=== PATIENT | male | born 1935 | race Caucasian/White ===

== ENCOUNTER → 2016-06-03 | Outpatient (CLI) | payer OTHER ==
[~2016-06-03] MED LIST: AMLODIPINE BESY10 MG PO; ASPIRIN81 M2 PO; BP MED; CHOLESTEROL MED; DIURETIC; HYDROCHLOROTH12.5 M1 PO; TOPROL XL50 MG PO; VIAGRA100 MG PO; ZESTRIL40 MG PO
== END ==
LOC: RAD 12:11
DX: I10 Essential (primary) hypertension (principal); M25.551 Pain in right hip

== ENCOUNTER 2018-05-17 11:09 | Inpatient (IN) | payer OTHER ==
[~2018-05-17] VITALS: Ht 177.8 cm; Wt 99.8 kg
[2018-05-17 11:11] VITALS: BP 183/90
[2018-05-17 12:01] LABS: ABSOLUTE NEUTROPHILS 5.6 thou/uL (1.4-8.2); BASOPHILS 0.8 % (0.0-2.0); EOSINOPHILS 0.2 % (0.0-3.0); HEMATOCRIT 40.8 % (42.0-52.0); HEMOGLOBIN 13.9 gm/dL (14.0-18.0); LYMPHOCYTES 11.7 % (24.0-44.0); MCV 94.1 fL (80.0-100.0); PLATELET COUNT 140 thou/uL (150-400); POLYS 83.3 % (36.0-66.0); RBC 4.33 mil/uL (4.50-6.00); RDW 13.7 % (10.5-14.5); WBC 6.7 thou/uL (4.0-11.0)
[2018-05-17 12:05] LABS: CALCIUM 8.9 mg/dL (8.5-10.1); CREATININE 1.3 mg/dL (0.7-1.3); POTASSIUM 3.6 mmol/L (3.5-5.1)
[2018-05-17 12:08] LABS: ALBUMIN 3.3 g/dL (3.4-5.0); DIRECT BILIRUBIN 0.3 mg/dL (<0.1-0.3); TOTAL BILIRUBIN 1.4 mg/dL (<0.1-1.0); TOTAL PROTEIN 7.1 g/dL (6.4-8.2)
[2018-05-17 12:17] LABS: URINE BILIRUBIN NEGATIVE (Negative); URINE BLOOD TRACE (Negative); URINE CLARITY CLEAR; URINE COLOR YELLOW; URINE GLUCOSE-RANDOM* NEGATIVE (Negative); URINE KETONES NEGATIVE (Negative); URINE LEUKOCYTES-REFLEX NEGATIVE (Negative); URINE NITRITE-REFLEX NEGATIVE (Negative); URINE PROTEIN (DIPSTICK) 2+ (Negative); URINE SPECIFIC GRAVITY 1.025 (1.005-1.035); URINE UROBILINOGEN 0.2 E.U./dl (0.2-1.0)
[2018-05-17 12:27] LABS: CASTS None Seen /LPF (None Seen); SQUAMOUS 0-3 Few /LPF (0-3)
[2018-05-17 12:28] LABS: MUCUS 0-3 Light strn/LPF (None Seen); URINE RBC 0-2 Rare /HPF (0-2); URINE WBC-REFLEX 0-5 Rare /HPF (0-5)
[2018-05-17 12:29] LABS: BACTERIA-REFLEX None Seen /HPF (None Seen); CRYSTALS None Seen /LPF (None Seen)
[2018-05-17] MEDS ORDERED: ATORVASTATIN CA40 MG PO (12:37)
[2018-05-17] MEDS ORDERED: PLAVIX 75 MG TA75 M1 PO (12:37)
[2018-05-17] MEDS ORDERED: PROSCAR 5MG TABL5 MG PO (12:38)
[2018-05-17] MEDS ORDERED: FLOMAX0.4 MG PO (12:38)
--- NOTE | 2018-05-17 16:31 | NUR ---
CT AWARE OF IV ACCESS IN RAC
[2018-05-17 16:47] VITALS: BP 177/87
[2018-05-17 18:25] VITALS: BP 195/72
[2018-05-17 18:50] VITALS: BP 171/84
[2018-05-17 23:54] VITALS: BP 123/68
[2018-05-18 04:10] VITALS: BP 127/58
--- NOTE | 2018-05-18 05:38 | NUR ---
Pt. rested quietly at intervals during the night when checked on during frequent rounds. He offers no c/o pain or nausea. Used the urinal when offered to him. Bed alarm is on.
[2018-05-18] MEDS ORDERED: COREG6.25 MG PO (07:11)
[2018-05-18 07:50] VITALS: BP 132/62
--- NOTE | 2018-05-18 13:16 | NUR ---
PT ADMITTED RELATED TO VOMITING, NEAR SYNCOPE, UNABLE TO AMBULATE, HYPERTENSION. CM REVIEWED CHART AND SPOKE WITH CARE TEAM. CM MET WITH PT AND SPOUSE AT BEDSIDE THIS DAY. PT IS A&0 X4. CM ROLE INTRODUCED. PT INDICATED HE LIVES IN AN APAETMENT WITH HIS SPOUSE 2 STEPS TO ENTER NO STEPS INSIDE. PT INDICATED HE USED A CANE TO ASSIST WITH MOBILITY. PT INDICATED HE HAD USED [facility] IN THE PAST AND HE WANTED TO USE THEM AGIAN UPON DC IF NEEDED. CM TO FALLOW REGARDING DC PLANNING.
--- NOTE | 2018-05-18 14:40 | NUR ---
DISCHARGE PLANNING. ANTICIPATED DISCHARGE PLANNED FOR TOMORROW. HOME HEALTH SERVICES RECOMMENDED AT DISCHARGE. PATIENT HAS USED [facility] IN THE PAST AND REQUESTS REFERRAL FAXED TO [facility]. REFERRAL FAXED TO [facility] ADMISSIONS LIAISON. CALL PLACED TO [facility] TO NOTIFY OF OF REFERRAL AND PATIENTS ANTICIPATED DISCHARGE DATE. [facility] TO REVIEW REFERRAL AND NOTIFY CM. UNIT SW AWARE. FOLLOWING TO ASSIST WITH DC NEEDS.
--- NOTE | 2018-05-18 15:00 | NUR ---
CARE TEAM INDICATED THAT PT WILL LIKELY BE MEDICALLY STABLE TO DISCHARGE HOME WITH HOME HEALTH TOMORROW Monday05/19/18. PHYSICIAN INDICATED THAT PT WOULD BENEFIT FROM HH PT, OT, AND NURSING HH SERVICES UPON DC. PT AND SPOUSE EXPRESSED DESIRE TO USE [facility]. REFERRAL WAS SENT. ONCE ORDERS ARE ENTERED PLEASE FAX THEM TO . PLEASE CALL TO NOTIFY THEM OF DC. PT HAS ALL RECOMMENDED DME. NO OTHER CM INTERVENTION ANTICIPATED. CM ABLE TO ASSIST SHOULD NEEDS ARISE.
[2018-05-18 15:15] VITALS: BP 131/68
--- NOTE | 2018-05-18 15:15 | EKG ---
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1935 Requested By: Juliet Dugan Order Number: [id number] MD: Dorian Delatorre Measurements Intervals [place] Rate: 45 P: -4 MN: 228 QRS: -16 QRSD: 104 T: 212 QT: 514 QTc: 445 Interpretive Statements Sinus bradycardia Prolonged [place] interval LVH with secondary repolarization abnormality Compared to ECG 02/12/2014 14:30:35 Ectopics not present Electronically Signed On 05-18-2018 15:15:25 CDT by Dorian Delatorre [email or web address] ��������������������������������������������� <ELECTRONICALLY SIGNED> ���������������������������������������� By: Dorian Delatorre MD ��������������������������������������������� 05/18/18 1515 1318 17 Dorian Delaotrre MD /EPI
--- NOTE | 2018-05-18 17:40 | NUR ---
PT A&OX4, VSS, NO PAIN. ADVANCED TO REGULAR DIET AND TOLERATING WITH NO C/O N/V/D. PT UNSTEADY GAIT AND WALKED BETTER WITH WALKER. WILL CONTINUE TO MONITOR.
[2018-05-18 20:26] VITALS: BP 147/74
[2018-05-19 04:18] VITALS: BP 141/55
--- NOTE | 2018-05-19 05:27 | NUR ---
Pt. rested quietly during the night when checked on during frequent rounds. He offers no complaints of pain or discomfort. Bed alarm is on.
[2018-05-19 08:13] VITALS: BP 174/80
[2018-05-19 16:47] VITALS: BP 149/76
--- NOTE | 2018-05-19 17:19 | NUR ---
PT A&OX4, VSS, NO PAIN. PT HAS USED WALKER TO AMBULATE WITH STAND BY ASSIST. PT ABLE TO MOVE FROM BED TO RECLINER AND STAND FROM RECLINER WITH MINIMUM ASSIST. PLAN IS TO DISCHARGE HOME WITH HOME HEALTH, PT, AND OT SOON PT REGAINS STRENGTH. WILL CONTINUE TO MONITOR.
[2018-05-19 19:25] VITALS: BP 180/105
[2018-05-19 20:00] VITALS: BP 167/98
[2018-05-20] VITALS: BP 185/107
[2018-05-20 00:02] VITALS: BP 181/109
[2018-05-20 04:00] VITALS: BP 164/86
--- NOTE | 2018-05-20 04:31 | NUR ---
Pt. rested quietly during the night when checked on during frequent rounds. He offers no c/o pain or discomfort. Bed alarm is on.
[2018-05-20 07:35] VITALS: BP 160/108
--- NOTE | 2018-05-20 11:46 | NUR ---
ASSUMED CARE AT 0700, SHIFT ASSESSMENT DONE, MEDS GIVEN, BP ELEVATED THIS AM, SCHEDULED MED GIVEN. DR Dwayne PARIS SAW THE PATIENT TODAY, INDICATED PATIENT CAN BE OFF FALL PRECAUTIONS, SO CHAIR AND BED ALARM TURNED OFF. PATIENT WILL BE EVALAUTED AGAIN AT 04 PM AND IF ABLE TO GET UP AND MOVE AROUND WELL, WILL BE DISCHARGED THIS EVENING. WILL CONTINUE TO ASSESS AND ASSIST WITH ADLs NEEDED.
[2018-05-20 13:52] VITALS: BP 147/92
--- NOTE | 2018-05-20 16:36 | NUR ---
DR Jose Manuel PARIS WAS PAGED AT [phone] REGARDING DISCHARGE ORDERS. HAVE NOT RECEIVED A CALL BACK YET.
--- NOTE | 2018-05-20 18:46 | NUR ---
PATIENT WANTED TO STAY FOR TONIGHT, DR PARIS DID NOT CALL BACK. WILL CONTINUE TO ASSESS AND ASSIST WITH ADLs NEEDED.
[2018-05-20 20:04] VITALS: BP 167/94
[2018-05-21 03:54] VITALS: BP 155/94
--- NOTE | 2018-05-21 04:43 | NUR ---
PT SLEPT MOST OF THE SHIFT. NO CURRENT COMPLAINTS. PT DID NOT EXPERIENCE ANY NEAR SYNCOPE EVENT THIS SHIFT. PATIENT EXPECTED TO GO HOME IN THE AM WITH HOME HEALTH. PATIENT IS PROGRESSING TOWARDS DISCHARGE GOALS.
[2018-05-21 08:00] VITALS: BP 163/103
--- NOTE | 2018-05-21 10:16 | H ---
[facility] [place] [address] HISTORY AND PHYSICAL Name: AMERICA GRANT Room #: 458-P ADM IN M.R.#: [id number] Admission: 05/17/18 ������������������ Attend Phys: Missy Menard MD Discharge: ������������������ Date of : 33 Report #: [id number] THIS REPORT FOR: //name// CC: Missy Menard DATE OF SERVICE: 05/17/2018 CHIEF COMPLAINT: Nausea, diarrhea and weakness. HISTORY OF PRESENT ILLNESS: The patient is an 82-year-old gentleman who came in to the Emergency Room initially with GI symptoms. He reported a large bowel movement and had some vomiting and somewhat of loose stools at home. He did not have any fever, chills or abdominal pain. However, he was very weak getting out of the bathroom and had dry heaving with shortness of breath for about an hour. He felt like his blood pressure was elevated and he came to the Emergency Room. Initially, he was evaluated for GI symptoms, which workup was unremarkable. Plans were to let him go home; however, when they tried to get him up from the stretcher, he was very weak and could not manage to go home. CT of the head was obtained with vascular component, but did not show any stroke or new issue, with a previously coiled aneurysm. PAST MEDICAL HISTORY: Hypertension, dyslipidemia and cerebral aneurysm, status post coiling in the distant past. PAST SURGICAL HISTORY: None. FAMILY HISTORY: Noncontributory. SOCIAL HISTORY: He is and lives with his . No chronic alcohol or tobacco use. ALLERGIES: None. MEDICATIONS: Aspirin, hydrochlorothiazide, Coreg, Lipitor, Plavix, Proscar and Flomax. REVIEW OF SYSTEMS: He denies headache, chest pain, shortness of breath, abdominal pain, nausea, vomiting, diarrhea, constipation, dysuria or syncope. PHYSICAL EXAMINATION: VITAL SIGNS: Temperature 36.6, pulse 44, respirations 18, blood pressure 132/62 and O2 sat 94% on room air. GENERAL: He is awake and alert, in no distress. LUNGS: Clear. HEART: Regular. ABDOMEN: Soft. Normoactive bowel sounds. No rebound or guarding. [facility] [address] [place] [address] HISTORY AND PHYSICAL Name: AMERICA GRANT Room #: 458-P [facility] IN .R.#: [id number] Admission: 05/17/18 ������������������ Attend Phys: Missy Menard MD Discharge: ������������������ Date of : 33 Report #: [id number] EXTREMITIES: No edema. NEUROLOGIC: His cranial nerves are intact. Speech is fluent. Motor strength intact. LABORATORY DATA: Lab and CT data reviewed. ASSESSMENT: 1. Nausea, vomiting and diarrhea. 2. Hypertension. 3. Bradycardia. PLAN: GI symptoms seem to be self-limited at this point. He is bradycardiac and I am going to discontinue the Coreg and just place him on amlodipine. Therapy to work with him and if no other new findings, then early discharge home in the next day. ��������������������������������������������� <ELECTRONICALLY SIGNED> ���������������������������������������� By: Efrain Lake MD ��������������������������������������������� 05/21/18 1016 1124 1148 Efrain Lake MD /nt
[2018-05-21] MEDS ORDERED: AMLODIPINE BESYL5 M1 PO (12:30)
[2018-05-21] MEDS ORDERED: NORVASC10 MG PO (12:32)
[2018-05-21 12:34] VITALS: BP 163/103
[2018-05-21 12:58] VITALS: BP 163/103
--- NOTE | 2018-05-21 14:50 | NUR ---
PT ALERT AND ORIENTED TIMES FOUR. BP ELEVATED THIS MORNING BEFORE SCHEDULED BP MEDICATIONS GIVEN. OTHER VSS, 97%RA, SR ON TELE. PT DENEIS PAIN/SOA. PT TOLERATES MEDS AND MEALS. PT EXCITED FOR DISCHARGE HOME TODAY. PT UP TO CHAIR FOR MOST OF THE SHIFT. PT PROGRESSING TOWRADS POC GOALS.
--- NOTE | 2018-05-21 16:31 | NUR ---
DISCHARGE NOTE: SW reviewed chart and spoke with nursing. Pt is medically stable for discharge home today. No orders for HH written. Pt's states that they do not feel that they need HH at this time, but if they change their mind, they will contact pt's PCP to arrange. SW notified Miguel at [facility]. No additional SW needs identified at this time, but is available to assist should needs arise.
--- NOTE | 2018-05-22 09:32 | HC ---
[facility] [address] CONSULTATION Name: AMERICA GRANT Rosie Room #: 458-P [facility] IN M.R.#: [id number] Admission: 05/17/18 ������������������ Attend Phys: Missy Menard MD Discharge: 05/21/18 ������������������ Date of : 33 Report #: [id number] THIS REPORT FOR: //name// CC: Missy Menard DATE OF SERVICE: 05/21/2018 FINAL DIAGNOSES: 1. Gastroenteritis. 2. Hypertension. 3. Debility. HOSPITAL COURSE: The patient was admitted with general weakness and some GI issues. Gastroenteritis was diagnosed, and he was treated symptomatically. There was also concern of a possible vascular event. A CT of the head with angiogram was obtained, but there was no evidence of bleeding or active aneurysm. He previously had aneurysm clipped several years ago and therefore could not undergo an MRI. There were no signs of new stroke based on CT. He was noted with bradycardia, and his Coreg was stopped. He was switched to amlodipine 10 mg a day. With physical therapy, his strength improved. PHYSICAL EXAMINATION: On the day of discharge: GENERAL: He was awake and alert. VITAL SIGNS: Stable vital signs, although blood pressure elevated. LUNGS: Clear. HEART: Regular. ABDOMEN: Soft, normoactive bowel sounds. EXTREMITIES: No edema. PLAN: To discharge home. Increase Norvasc to 10 mg a day. DISPOSITION: As mentioned, he will return home with diet and activity as tolerated, resume all home medications except Coreg and switched to Norvasc 10 mg a day. Follow up with Dr. Menard in 10 days. ��������������������������������������������� <ELECTRONICALLY SIGNED> ���������������������������������������� By: Efrain [place] MD ��������������������������������������������� 05/22/18 0932 1307 0250 Efrain Lake MD /nt
== END 2018-05-21 14:57 | disposition home or self-care (01) | DRG 392 ==
LOC: ER 11:09 → EROBS 15:39 → 4W 15:39
PROVIDERS: Emergency Medicine; ADMIT Internal Medicine
DX: K52.9 Noninfective gastroenteritis and colitis, unspecified (principal); R00.1 Bradycardia, unspecified; R55 Syncope and collapse; I10 Essential (primary) hypertension; E78.5 Hyperlipidemia, unspecified; Z79.82 Long term (current) use of aspirin; Z79.899 Other long term (current) drug therapy
CPT/HCPCS: 10045

== ENCOUNTER 2020-11-22 03:47 | Inpatient (IN) | payer OTHER ==
[2020-11-22] VITALS (17 sets, daily range): BP systolic 98–192; BP diastolic 54–124
[~2020-11-22] VITALS: Ht 177.8 cm; Wt 97.4 kg
--- NOTE | ~2020-11-22 | HC ---
[facility] [address] [address] CONSULTATION Name: AMERICA GRANT Room #: 245-P [facility] IN .R.#: [id number] Admission: 11/22/20 Attend Phys: Ximena Gupta MD Discharge: Date of : 33 Report #: [id number] THIS REPORT FOR: cc: Missy Menard MD, Stany A. MD [place], Roxane S. DO ~ DATE OF SERVICE: 11/22/2020 NEUROLOGY CONSULT HISTORY OF PRESENT ILLNESS: The patient is an 85-year-old gentleman who was brought to the hospital after he has fallen. His was unable to help him up, so EMS was called. Apparently, the patient has a history of stroke 7 years ago. The patient stopped all medications 6 months ago. Apparently, he saw his family physician a month or so ago and the family physician explained to him that he increases his risk for stroke or heart attack by discontinuing his medications. Apparently, the patient was tired of taking medication. With the stroke 7 years ago, the patient had sagging of his face and a left facial droop. This is his baseline now. Apparently, the patient also has a history of atrial fibrillation and when he came to the Emergency Room, he was found to be in atrial fibrillation. The patient's told EMS that aside from the baseline facial droop, he appeared to be having more difficulty with speech and it seemed to be more slurred. When he initially came to the ER, he was answering medications and was alert and oriented, although his speech was slurred. When I came in the room, the patient appeared short of breath and his oxygen saturation was 83%. The patient is now in the process of being moved to the intensive care unit. The patient is a no code, but his would like to continue with care. PAST MEDICAL HISTORY: Hypertension, hyperlipidemia, atrial fibrillation. PAST SURGICAL HISTORY: Unremarkable. MEDICATIONS AT HOME: Aspirin 81 mg daily, Lipitor 40 mg daily, Plavix 75 mg daily, finasteride 5 mg daily, tamsulosin 0.4 mg daily. ALLERGIES: None. VITAL SIGNS: Temperature 36.4, pulse rate 66, respiratory rate 18, blood pressure 188/100. Bedside pulse oximetry 94% on 2 liters. LABORATORY DATA: Hematology: White blood cell count 6.4, hemoglobin 12.3, hematocrit 37.4, MCV 97.9, platelet count 134,000, 88% segmented neutrophils. [address] [address] CONSULTATION Name: AMERICA GRANT Room #: 245-P [facility] IN ..#: [id number] Admission: 11/22/20 Attend Phys: Ximena Gupta MD Discharge: Date of : 33 Report #: [id number] Coagulation: INR 1. Urinalysis: 2+ protein, 3+ blood. Blood gas: pH 7.316, pCO2 39.7, pO2 60.3, oxygen saturation 87.8%. Chemistry: Sodium 143, potassium 4.5, chloride 110, carbon dioxide 27, BUN 26, creatinine 1.9, GFR 34, glucose 149, calcium 8.5. Total bilirubin 0.5, AST 21, ALT 17, alkaline phosphatase 77. Troponin 94. BNP 4738. Total protein 6.4, albumin 3. TSH 1.882. Serology: COVID negative. 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 No residual aneurysm seen. CT head demonstrates no acute intracranial findings, age-related findings include symmetric cerebral and cerebellar volume loss, atherosclerosis and chronic central white matter microvascular ischemia and streak artifact in the distal right ICA from prior aneurysm coiling. NEUROLOGIC EXAMINATION: The patient is acutely ill and short of breath. On inspection of the face, the left palpebral fissure is smaller than the right and the patient has a left facial droop. He was able to speak, but his speech was slurred and very difficult to understand. He was able to move his arms and legs equally. There was no significant difference. Reflexes are trace. Plantar responses were flexor bilaterally. Because the patient was acutely ill, [id number] was not performed. IMPRESSION: During this dictation, there is a question of DVT in the right lower extremity. However, we are waiting for the final radiology report. If the patient does have a DVT, the hospitalist plans on beginning anticoagulation with heparin. The patient has an increase in slurred speech and MRI of the head and MRI of the cervical spine have been ordered. The MRI of the cervical spine was ordered because of the patient's history of falls. An echocardiogram has also been ordered. Carotid ultrasound is not being ordered because the CT angiogram was done. To complete the TIA or stroke workup depending on the results of the MRI, a lipid profile is also pending. Further recommendations will be made once the patient is more stable medically and the results of the MRIs are available. I also spoke with Dr. Alvarez and I feel that it would be in the patient's best interest if he were transferred from the floor to the ICU, which is now in process. [address] [address] CONSULTATION Name: AMERICA GRANT Room #: 245-P ADM IN M.R.#: [id number] Admission: 11/22/20 Attend Phys: Ximena Gupta MD Discharge: Date of : 33 Report #: [id number] As of Monday morning, Teleneurology will be following the patient. By: 1325 19 Nia Murdock DO /jessika
--- NOTE | ~2020-11-22 | EMS ---
[address] [address] EMS Patient Care Report Name: AMERICA GRANT Room #: 170-8 ADM IN M.R.#: [id number] Admission: 11/22/20 Attend Phys: Ximena Gupta MD Discharge: Date of : 31 Report #: [id number] THIS REPORT FOR: //name// Report Transmitted: 11/22/2020 05:47 EMS Care Summary [facility] MED-ACT Incident [id number] @ 11/22/2020 03:07 Incident Location [address] [place] [address] Patient AMERICA GRANT Male, 85 Years 1935 Patient Address [address] [place] [address] Patient History Dementia,Stroke/CVA, Patient Allergies No known allergies, Patient Medications None Reported, Chief Complaint he's really swollen Disposition Transported No Lights/[place] Dispatch Reason Assist Invalid Transported To [facility] Narrative Dispatched to a residence for a male pt reported to have peripheral edema and gurgling sounds while speaking. EMS arrives to find [facility] crew on scene, [address] [address] EMS Patient Care Report Name: AMERICA GRANT Room #: 170-8 ADM IN M.R.#: [id number] Admission: 11/22/20 Attend Phys: Ximena Gupta MD Discharge: Date of : 31 Report #: [id number] reporting that they had been called to the residence for a lift assist after the man slid to the floor and was unable to get up. They report that upon lifting him from the floor next to the bed to a chair, they noticed a significant pedal edema, a left sided facial droop, and a gurgling noise when he speaks. 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 She says that his voice is always "gravelly" but not usually this bad. She also reports that approximately 6 months ago, after speaking with his physician, the pt ceased all prescription medications. She reports her understanding is that they were no longer necessary, though she is unable to say what they were or why he had been prescribed them before. She does report that along with the prior CVA, pt has a history of dementia. She says that he has difficulty ambulating through the home, and leans forward, holding onto the selby to get around. She also says that he wanders the house at all hours of the day and night. Pt denies any pain or injury, though his reports that he is unable to feel pain since his CVA. Pt also denies any dyspnea or other complaint for himself. Pt agrees to transport. His requests that he is taken to [facility] ER. Pt is lifted from a chair to the cot before being secured and moved to the ambulance for a no lights or sirens transport to [facility]. O2 administered via NC while en route. Pt lifted from the cot to the ER bed in room #8. Care transferred to waiting staff readiness officer. Initial Vitals @03:30P: 126,Pain: 0/10,SpO2: 92,OR Suspected: false @03:36P: 117,SpO2: 94, @03:40P: 106,BP: 135/84,SpO2: 93, @PTAP: 133,BP: 119/86, @03:21P: 81,R: 18,BP: 119/86,GCS: 14,SpO2: 92,Revised Trauma: 12, @PTAP: 120,R: 18,BP: 148/76,Pain: 0/10,GCS: 14,Temp: 98.2F,Glucose: 164,SpO2: 95,Revised Trauma: 12, Impression Pitting Edema Procedures @03:40Surgical Mask on PatientResponse: Unchanged@03:25Oxygen FlowRate: 4 Device: Nasal Cannula (NC) Response: UnchangedSucceeded@03:3012-Lead ECGResponse: UnchangedSucceeded@03:26Saline Lock 10cc (20 ga) Site: Antecubital-RightResponse: UnchangedSucceeded Timeline COMMERCIAL INTERN,BP: 119/86 M,PULSE: 133,RR: R,SPO2: Ox,ETCO2: ,BG: ,PAIN: ,GCS: , COMMERCIAL INTERN,BP: 148/76 M,PULSE: 120,RR: 18 R,SPO2: 95 Ox,ETCO2: ,B,PAIN: 0,GCS: [address] [address] EMS Patient Care Report Name: AMERICA GRANT Rosie Room #: 170-8 ADM IN M.R.#: [id number] Admission: 11/22/20 Attend Phys: Ximena Gupat MD Discharge: Date of : 31 Report #: [id number] 14, 02:48,Call Received 02:48,Psap Call 03:07,Dispatched 03:09,En Route 03:12,On Scene 03:14,At Patient 03:21,BP: 119/86 M,PULSE: 81,RR: 18 R,SPO2: 92 Ox,ETCO2: ,BG: ,PAIN: ,GCS: 14, 03:25,Oxygen FlowRate: 4 Device: Nasal Cannula (NC) Response: UnchangedSucceeded, 03:26,Saline Lock 10cc 20 ga Site: Antecubital-Right,Response: UnchangedSucceeded, 03:30,12-Lead ECG,Response: UnchangedSucceeded, 03:30,BP: / M,PULSE: 126,RR: R,SPO2: 92 Ox,ETCO2: ,BG: ,PAIN: 0,GCS: , 03:34,Depart Scene 03:36,BP: / M,PULSE: 117,RR: R,SPO2: 94 Ox,ETCO2: ,BG: ,PAIN: ,GCS: , 03:40,Surgical Mask on Patient,Response: Unchanged 03:40,BP: 135/84 M,PULSE: 106,RR: R,SPO2: 93 Ox,ETCO2: ,BG: ,PAIN: ,GCS: , 03:43,At Destination 04:03,Call Closed Disclaimer v1.1 Copyright 2020 [employer] This EMS Care Summary contains data elements from the applicable legal record (which may be displayed differently). It is designed to provide pertinent information for the following purposes: continuity of care, clinical quality, and state data reporting. The complete legal record is available to ED staff and administrators of the receiving hospital in [employer]'s Patient Tracker. All data is provided "as is."
[~2020-11-22 03:47] MED LIST changes: +AMLODIPINE BESYL5 M1 PO; +ATORVASTATIN CA40 MG PO; +COREG6.25 MG PO; +FLOMAX0.4 MG PO; +NORVASC10 MG PO; +PLAVIX 75 MG TA75 M1 PO; +PROSCAR 5MG TABL5 MG PO
[2020-11-22 04:23] LABS: ABSOLUTE NEUTROPHILS 5.5 thou/uL (1.4-8.2); BASOPHILS 0.7 % (0.0-2.0); HEMATOCRIT 37.4 % (42.0-52.0); HEMOGLOBIN 12.3 gm/dL (14.0-18.0); MCH 32.3 pg (26.0-34.0); MCV 97.9 fL (80.0-100.0); MONOCYTES 6.3 % (1.0-8.0); PLATELET COUNT 134 thou/uL (150-400); RBC 3.82 mil/uL (4.50-6.00); RDW 13.6 % (10.5-14.5); WBC 6.4 thou/uL (4.0-11.0)
[2020-11-22 04:25] LABS: CALCIUM 8.5 mg/dL (8.5-10.1); CREATININE 1.9 mg/dL (0.7-1.3); POTASSIUM 4.5 mmol/L (3.5-5.1)
[2020-11-22 04:28] LABS: APTT 22.8 Seconds (24.5-32.8); INR 1.03; PROTIME 11.2 Seconds (10.5-12.1)
[2020-11-22 04:33] LABS: URINE BILIRUBIN NEGATIVE (Negative); URINE BLOOD 3+ (Negative); URINE CLARITY CLEAR; URINE COLOR YELLOW; URINE GLUCOSE-RANDOM* NEGATIVE (Negative); URINE KETONES NEGATIVE (Negative); URINE LEUKOCYTES-REFLEX NEGATIVE (Negative); URINE NITRITE-REFLEX NEGATIVE (Negative); URINE PROTEIN (DIPSTICK) 2+ (Negative); URINE SPECIFIC GRAVITY >= 1.030 (1.005-1.035); URINE UROBILINOGEN 0.2 E.U./dl (0.2-1.0)
[2020-11-22 04:35] LABS: TOTAL BILIRUBIN 0.5 mg/dL (0.2-1.0); TOTAL PROTEIN 6.4 g/dL (6.4-8.2)
[2020-11-22 04:48] LABS: BACTERIA-REFLEX 1-9 Few /HPF (None Seen); CASTS None Seen /LPF (None Seen); CRYSTALS None Seen /LPF (None Seen); MUCUS 0-3 Light strn/LPF (None Seen); SQUAMOUS None Seen /LPF (0-3); URINE RBC 3-10 Few /HPF (NONE SEEN); URINE WBC-REFLEX 0-5 Rare /HPF (0-5)
--- NOTE | 2020-11-22 13:43 | EKG ---
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1935 Requested By: Sandor Patel Order Number: [id number] MD: Landry Melendez Measurements Intervals [place] Rate: 79 P: -3 [place]: 233 QRS: -23 QRSD: 148 T: 140 QT: 411 QTc: 472 Interpretive Statements Sinus rhythm Atrial premature complexes in couplets Prolonged [place] interval Left bundle branch block Compared to ECG 05/17/2018 13:18:09 Atrial premature complex(es) now present Left bundle-branch block now present Sinus bradycardia no longer present Electronically Signed On 11-22-2020 13:43:19 CDT by Landry Melendez [email or web address] <ELECTRONICALLY SIGNED> By: Landry Melendez MD, FAC 11/22/20 1343 0404 0404 Landry Melendez MD, [facility] /EPI
--- NOTE | 2020-11-22 13:46 | EKG ---
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 11/22/20 1345 9 9 Landry Melendez MD, FACC /EPI
[2020-11-22 14:07] LABS: BE(vivo) -5.9 mmol/L (-2 to +3); HCO3 19.8 mmol/L (22.0-26.0); PCO2 39.7 mmHg (35.0-45.0); PO2 60.3 mmHg (80.0-100.0); pH 7.316 (7.360-7.450); sO2 89.2 % (92.0-98.0)
[2020-11-22 14:26] LABS: CALCIUM 8.8 mg/dL (8.5-10.1); CREATININE 1.9 mg/dL (0.7-1.3); POTASSIUM 4.3 mmol/L (3.5-5.1)
[2020-11-22 14:35] LABS: MAGNESIUM 2.3 mg/dL (1.8-2.4); PHOSPHORUS 4.6 mg/dL (2.6-4.7)
--- NOTE | 2020-11-22 17:12 | NUR ---
NOTIFIED TO PLACE A PICC FOR A PATIENT IN RESPIRATORY DISTRESS TRANSFERING TO THE ICU, THE PATIENT WAS RESTLESS AND UNABLE TO LAY STILL. A #5F TRIPLE LUMEN PICC WAS PLACED IN THE RIGHT BASILIC. THE PATIENT WAS PULLING AT STERILE DRAPE AND NONCOMPLIANT AND UNABLE TO REDIRECT THROUHOUT THE WHOLE PROCEDURE. THE LINE WAS TRIMMED TO 50CM. THE PATIENT PULLED THE SHERLOCK AND LEADS OFF DURING PLACEMENT AND WAS DIFFICULT TO MAINTAIN STERILE FIELD. A STAT CHEST XRAY WAS NOTED AND THE LINE WAS WITHDREW 4CM REQUESTED. THE 2ND CHEST XRAY SHOWS LINE IN GOOD POSITION FOR USE.
--- NOTE | 2020-11-22 17:26 | NUR ---
PT ADMITTED FROM ER TO 3W ABOUT 1100AM , PT WAS A&OX2 ( PERSON AND PLACE), PT CAN FOLLOW SOME COMMANDS, BUT PT 'S SPEACH IS SLURRED, RN HAS CALLED HOSPITAL DR TO REPORT PTSTARTS MORE CONFUSED , A-FIB ANDRESPIRATORY DISTRESS, RN RECEIVED ORDER, PT STARTS BIPAP WITH O2 70%, PT WAS TRANSFED TO ICU AT 1600PM, PT'S HAS NOTIFIED PT TO ICU.
--- NOTE | 2020-11-22 19:27 | NUR ---
report received from Radha Ku RN at 1715, care assumed. resting quietly on bipap with resp even, unlabored. scheduled meds given for elevated bp. cardizem 5mg/hr started at 1830 for short runs/several beats of afib rvr and elevated sbp.
[2020-11-23] VITALS (36 sets, daily range): BP systolic 48–93; BP diastolic 26–55
[2020-11-23 01:10] LABS: ALBUMIN 2.7 g/dL (3.4-5.0); CHOLESTEROL 133 mg/dL (<200); DIRECT BILIRUBIN 0.2 mg/dL (<0.1-0.2); HDL CHOLESTEROL 55 mg/dL (>40); LDL CHOLESTEROL 69 mg/dL (<100); MAGNESIUM 2.3 mg/dL (1.8-2.4); PHOSPHORUS 7.4 mg/dL (2.5-4.9); SGOT 26 U/L (15-37); SGPT 15 U/L (30-65); TC:HDL 2.4 Ratio (Not establshd); TOTAL BILIRUBIN 0.6 mg/dL (0.2-1.0); TOTAL PROTEIN 6.3 g/dL (6.4-8.2); TRIGLYCERIDE 46 mg/dL (<150); VLDL 9 mg/dL (<40)
[2020-11-23 01:20] LABS: SERUM ASSESSMENT Clear
[2020-11-23 01:42] LABS: HEMATOCRIT 40.9 % (42.0-52.0); HEMOGLOBIN 13.2 gm/dL (14.0-18.0); MCH 32.1 pg (26.0-34.0); MCHC 32.3 g/dL (28.0-37.0); MCV 99.2 fL (80.0-100.0); RBC 4.13 mil/uL (4.50-6.00); RDW 14.4 % (10.5-14.5); WBC 13.6 thou/uL (4.0-11.0)
[2020-11-23 03:05] LABS: GLYCOHEMOGLOBIN (HGB A1C) 6.3 % (4.8-5.6)
--- NOTE | 2020-11-23 06:00 | NUR ---
ASSUMED CARE OF PT AT 0400. NONRESPONSIVE. PUPILS PINPOINT SPOKE WITH PTS ABOUT HIS DECLINE SBP 50/30 P 36 REMAINS A DNR. FAMILY MAY DECIDE TO DO COMFORT CARE TODAY. NOT PROGRESSING TOWARD GOALS
--- NOTE | 2020-11-23 06:00 | NUR ---
500 CC NS BOLUS GIVEN FOR BP SUPPORT PER Any SIMMONS NP
--- NOTE | 2020-11-23 07:21 | NUR ---
RECEIVED OT EVALUATION ORDER. PATIENT TRANSFERED FROM 3W TO ICU DUE TO RESPIRATORY DISTRESS. WILL PLACE PATIENT ON HOLD AND WILL NEED NEW ORDERS ONCE MEDICALLY APPROPRIATE.
--- NOTE | 2020-11-23 07:29 | NUR ---
ORDERS FOR EVAL AND TREAT. Pt TRANSFERRED TO ICU AND WILL BE PLACED ON HOLD AND AWAIT NEW ORDERS WHEN APPROPRIATE
--- NOTE | 2020-11-23 11:21 | 2DMMODE ---
[facility] [place] [address] 2 D/M-MODE ECHOCARDIOGRAM Name: AMERICA GRANT Room #: 245-P ADM IN .R.#: [id number] Admission: 11/22/20 Attend Phys: Ximena Gupta MD Discharge: Date of : 31 Report #: [id number] THIS REPORT FOR: cc: Missy Menard MD, Stany A. MD Lundgren, Craig H. MD [facility] ~ APPROVED REPORT Study performed: 11/23/2020 10:23:50 EXAM: Comprehensive 2D, Doppler, and color-flow Echocardiogram Patient Location: In-Patient Room #: 246 BSA: 2.21 HR: 89 bpm BP: 206/121 mmHg Rhythm: NSR Other Information Study Quality: Adequate Technically limited study due to lung disease, body habitus. Risk Factors: Cardiac Risk Factors: HTN Indications Atrial Fibrillation 2D Dimensions RVDd: 39.34 mm IVSd: 15.70 (7-11mm) LVOT Diam: 21.54 (18-24mm) LVDd: 36.53 mm PWd: 14.60 (7-11mm) Ascending Ao: 31.23 (22-36mm) LVDs: 20.20 (25-40mm) Left Atrium: 31.61 (27-40mm) Aortic Root: 29.66 mm LV Single Plane 4CH: 59.08 % Volumes Left Atrial Volume (Systole) Single Plane 4CH: 37.03 mL Single Plane 2CH: 50.28 mL Aortic Valve [facility] [address] [address] 2 D/M-MODE ECHOCARDIOGRAM Name: AMERICA GRANT Room #: 245-[facility] IN [facility].#: [id number] Admission: 11/22/20 Attend Phys: Ximena Gupta MD Discharge: Date of : 31 Report #: [id number] AoV Peak Harjinder.: 2.69 m/s AO Peak Gr.: 29.05 mmHg LVOT Max P.06 mmHg AO Mean Gr.: 14.47 mmHg LVOT Mean P.56 mmHg AO V2 Mean: 1.73 m/s LVOT Max V: 1.33 m/s AO V2 VTI: 69.61 cm LVOT Mean V: 0.87 m/s MARISOL (VTI): 1.72 cm2 LVOT V1 VTI: 32.81 cm MARISOL Vmax: 1.80 cm2 SV (LVOT): 119.43 mL Mitral Valve E/A Ratio: 1.0 MV Decel. Time: 327.88 ms MV E Max Harjinder.: 0.94 m/s MV A Harjinder.: 0.92 m/s MV PHT: 95.08 ms Pulmonary Valve PV Peak Harjinder.: 1.14 m/s PV Peak Gr.: 5.24 mmHg Tricuspid Valve TR Peak Harjinder.: 2.62 m/s TR Peak Gr.: 27.41 mmHg Left Ventricle The left ventricle is normal size. There is normal LV segmental wall motion. Mild to moderate concentric left ventricular hypertrophy. The left ventricular systolic function is normal. The left ventricular ejection fraction is within the normal range. LVEF is 55-60%. Right Ventricle The right ventricle is normal size. The right ventricular systolic function is normal. Atria The left atrium size is normal. Right atrium is mildly dilated. Aortic Valve Aortic valve is not well visualized. Mild stenosis (peak gradient 28 mm, mean gradient 14 mm) No aortic regurgitation is present. Mitral Valve Mild mitral annular calcification There is no mitral valve regurgitation noted. No evidence of mitral valve stenosis. Tricuspid Valve [facility] [address] [place] [address] 2 D/M-MODE ECHOCARDIOGRAM Name: AMERICA GRANT Rosie Room #: [address] [place] [address] IN [facility]#: [id number] Admission: 11/22/20 Attend Phys: Ximena Gupta MD Discharge: Date of : 31 Report #: [id number] The tricuspid valve is normal in structure. Mild tricuspid regurgitation. Pulmonary pressures 35 mmHg Pulmonic Valve The pulmonary valve is normal in structure. Mild pulmonic regurgitation. Great Vessels The aortic root is normal in size. IVC is dilated and collapses <50% with inspiration. Pericardium There is no pericardial effusion. <Conclusion> The left ventricular systolic function is normal. There is normal LV segmental wall motion. LVEF is 55-60%. Aortic valve is not well visualized. Mild stenosis (peak gradient 28 mm, mean gradient 14 mm) Mild mitral annular calcification. No mitral valve regurgitation. Mild tricuspid regurgitation. Pulmonary pressures of 35 mmHg There is no pericardial effusion. <ELECTRONICALLY SIGNED> By: Landry Melendez MD, FACC 11/23/20 112 20 20 Landry Melendez MD, FACC /INF
--- NOTE | 2020-11-23 14:30 | NUR ---
85 year old male brought via EMS after a fall in the home with further pronouncement of prior left facial droop from previous stroke. Found to be in a-fib, shock and multi-system failure. Per attending who spoke with the spouse has elected palliative care at this time. Notified nursing team CM will be available for needs as not wishing to disturb at bedside remaining with patient at this time.
--- NOTE | 2020-11-23 18:30 | NUR ---
ASSUMED PATIENT CARE AT 0700. UNRESPOENSIVE. BIPAP 60% FI02. BP LOW. STARTED COMFOET CARE FAMILY AT BEDSIDE. SWICHED 18F GRAY CATH AFTER NOTED PATIENT HAS BLLOD CLOT IN URINE. SLOWLY TOWARDS POC GOALS.
--- NOTE | 2020-11-23 21:59 | NUR ---
Pt care taken over at 1915. Breath sounds very diminished, rhythm sinus reinier. At 1945 pt began having periods of apnea last and heart rate slowed to 30-40's. called at 1949 and notified. Pt stopped breathing at 2009 and went asystole at 2012. notified of and she and daughter came in to view body. Emotional support given as needed.
== END 2020-11-23 20:13 | DRG 871 ==
LOC: ER 03:47 → EROBS 06:10 → ICU 06:10 → 3W 10:35 → ICU 15:47
PROVIDERS: Internal Medicine; Nurse Practitioner Family; Student in an Organized Health Care Education/Training Program; ADMIT Internal Medicine; ATTEND Internal Medicine
DX: A41.9 Sepsis, unspecified organism (principal); J69.0 Pneumonitis due to inhalation of food and vomit; J96.01 Acute respiratory failure with hypoxia; G45.9 Transient cerebral ischemic attack, unspecified; N17.9 Acute kidney failure, unspecified; I16.0 Hypertensive urgency; E78.00 Pure hypercholesterolemia, unspecified; I44.7 Left bundle-branch block, unspecified; R13.10 Dysphagia, unspecified; E78.5 Hyperlipidemia, unspecified; R47.1 Dysarthria and anarthria; N18.9 Chronic kidney disease, unspecified; R33.8 Other retention of urine; N40.1 Benign prostatic hyperplasia with lower urinary tract symptoms; Z66 Do not resuscitate; I12.9 Hypertensive chronic kidney disease with stage 1 through stage 4 chronic kidney disease, or unspecified chronic kidney disease; Z60.2 Problems related to living alone; I71.2 Thoracic aortic aneurysm, without rupture; R47.81 Slurred speech; I48.0 Paroxysmal atrial fibrillation; Z20.822 Contact with and (suspected) exposure to COVID-19; I46.9 Cardiac arrest, cause unspecified; Z79.01 Long term (current) use of anticoagulants; Z82.49 Family history of ischemic heart disease and other diseases of the circulatory system; Z51.5 Encounter for palliative care; Z79.82 Long term (current) use of aspirin; Z79.899 Other long term (current) drug therapy
CPT/HCPCS: 10078; 27000